=== PATIENT | female | born 2000 | race Caucasian/White ===

== ENCOUNTER 2019-12-22 05:37 | Inpatient (IN) | payer BC, OTHER ==
[2019-12-22 06:24] LABS: APPEARANCE,URINE CLOUDY; BILIRUBIN,URINE NEGATIVE (NEGATIVE); COLOR,URINE YELLOW; GLUCOSE, URINE NEGATIVE (NEGATIVE); KETONES,URINE 20 mg/dL (NEGATIVE); LEUKOCYTE ESTERASE,URINE SMALL (NEGATIVE); NITRITE,URINE NEGATIVE (NEGATIVE); PROTEIN,URINE 30 mg/dL (NEGATIVE); URINE SPECIFIC GRAVITY 1.021; UROBILINOGEN,URINE NEGATIVE mg/dL (<2.0)
[2019-12-22 06:46] LABS: URINE AMPHETAMINES SCREEN NEGATIVE; URINE BARBITURATES SCREEN NEGATIVE; URINE BENZODIAZEPINES SCREEN NEGATIVE; URINE COCAINE SCREEN NEGATIVE; URINE MARIJUANA (THC) SCREEN NEGATIVE; URINE METHADONE SCREEN NEGATIVE; URINE PHENCYCLIDINE SCREEN NEGATIVE
[2019-12-22] MEDS ORDERED: RINGERS SOLUTION,LACTATED 1,000 ML IV ONE (08:32)
[2019-12-22] MEDS: RINGERS SOLUTION,LACTATED 1,000 ML IV PRN ×2 (09:28→17:40)
[2019-12-22 10:13] LABS: ABSOLUTE EOSINOPHILS # (AUTO) 0.1 10^3/uL (0.0-0.6); ABSOLUTE LYMPHOCYTES (AUTO) 1.4 10^3/uL (0.5-4.7); ABSOLUTE MONOCYTES (AUTO) 0.7 10^3/uL (0.1-1.4); BASOPHILS % (AUTO) 0.2 % (0-2); EOSINOPHILS % (AUTO) 0.8 % (0-6); HEMATOCRIT 36.3 % (36.0-47.0); LYMPHOCYTES % (AUTO) 14.1 % (13-45); MEAN CORPUSCULAR HEMOGLOBIN 25.8 pg (27.0-33.4); MEAN CORPUSCULAR HGB CONC 33.2 g/dL (32.0-36.0); MEAN CORPUSCULAR VOLUME 78 fl (80-97); MONOCYTES % (AUTO) 6.8 % (3-13); PLATELET COUNT 140 10^3/uL (150-450); RED BLOOD COUNT 4.67 10^6/uL (3.72-5.28); RED CELL DISTRIBUTION WIDTH 15.6 % (11.5-14.0); SEGMENTED NEUTROPHILS % (AUTO) 78.1 % (42-78); TOTAL CELLS COUNTED % (AUTO) 100 %; WHITE BLOOD COUNT 10.2 10^3/uL (4.0-10.5)
[2019-12-22] MEDS ORDERED: OXYTOCIN/0.9 % SODIUM CHLORIDE 30 UNIT/500 ML RTUINJ IV PRN ×3 (10:52→19:01)
[2019-12-22] MEDS ORDERED: LIDOCAINE 1% INJ-PF (10 MG/ML) 30 ML SDV ONE (11:22)
[2019-12-22] MEDS ORDERED: OXYTOCIN/0.9 % SODIUM CHLORIDE 30 UNIT/500 ML RTUINJ ONE ×2 (11:22→19:24)
[2019-12-22] MEDS ORDERED: MISOPROSTOL 0.2 MG TABLET ONE (11:22)
[2019-12-22] MEDS ORDERED: OXYTOCIN 10 UNIT/ML VIAL ONE ×2 (11:22→17:45)
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
[2019-12-22] MEDS ORDERED: EPHEDRINE SULFATE INJ 50 MG/1 ML AMPULE ONE ×2 (14:04→17:46)
[2019-12-22] MEDS ORDERED: FENTANYL/BUPIVACAINE/NS/PF 300 MCG/150 ML RTUINJ EPI ONE (14:04)
[2019-12-22] MEDS ORDERED: ROPIVACAINE HCL 0.2% INJ/PF (2 MG/ML) 20 ML SDV ONE (14:04)
[2019-12-22] MEDS ORDERED: CITRIC ACID/SODIUM CITRATE ORAL SOLN 15 ML UDCUP ONE (17:16)
[2019-12-22] MEDS ORDERED: CEFAZOLIN 2 GM/D5W RTU 2 GM/50 ML RTUPB IV ONE (17:17)
[2019-12-22] MEDS ORDERED: PHENYLEPHRINE HCL INJ/PF 10 MG/1 ML SDV ONE (17:45)
[2019-12-22] MEDS ORDERED: KETOROLAC TROMETHAMINE INJ/PF 30 MG/1 ML SDV ONE (17:45)
[2019-12-22] MEDS ORDERED: LIDOCAINE 2% INJ-PF (20 MG/ML) 10 ML AMPUL ONE (17:45)
[2019-12-22] MEDS ORDERED: FENTANYL CITRATE INJ/PF 100 MCG/2 ML AMPUL ONE (17:45)
[2019-12-22] MEDS ORDERED: MIDAZOLAM 2 MG/2 ML INJ ONE (17:46)
[2019-12-22] MEDS ORDERED: METHYLERGONOVINE MALEATE INJ/PF 0.2 MG/1 ML AMPULE ONE (17:46)
[2019-12-22] MEDS ORDERED: ACETAMINOPHEN 1,000 MG/100 ML RTUPB IV ONE (17:46)
[2019-12-22] MEDS ORDERED: ONDANSETRON HCL INJ/PF 4 MG/2 ML SDV ONE (17:46)
[2019-12-22] MEDS ORDERED: PROMETHAZINE HCL INJ 25 MG/1 ML VIAL IV PRN ×3 (18:03→19:01)
[2019-12-22] MEDS ORDERED: MEPERIDINE HCL/PF INJ 25 MG/1 ML DISP.SYRIN IV PRN (18:03)
[2019-12-22] MEDS ORDERED: OXYCODONE-ACETAMINOPHEN 5-325 MG TABLET PO PRN ×3 (18:03→19:01)
[2019-12-22] MEDS ORDERED: ONDANSETRON HCL INJ/PF 4 MG/2 ML SDV IV PRN (18:03)
[2019-12-22] MEDS ORDERED: FENTANYL CITRATE INJ/PF 100 MCG/2 ML AMPUL IV PRN ×3 (18:03)
[2019-12-22] MEDS ORDERED: DIPHENHYDRAMINE HCL 50 MG/ML VIAL IV PRN (18:03)
[2019-12-22] MEDS ORDERED: ACETAMINOPHEN 325 MG TABLET PO PRN (19:01)
[2019-12-22] MEDS ORDERED: DIPH/PERTUSS(ACELL)/TETANUS VAC/PF 0.5 ML SYR (>=10YO) IM PRN (19:01)
[2019-12-22] MEDS ORDERED: SIMETHICONE 80 MG TAB.CHEW PO PRN (19:01)
[2019-12-22] MEDS ORDERED: MEASLES,MUMPS&RUBELLA VACC/PF 0.5 ML VIAL SUBCUT PRN (19:01)
[2019-12-22] MEDS ORDERED: RINGERS SOLUTION,LACTATED 1,000 ML IV PRN (19:01)
[2019-12-22] MEDS ORDERED: ACETAMINOPHEN 1,000 MG/100 ML RTUPB IV PRN (19:01)
[2019-12-22] MEDS ORDERED: MORPHINE SULFATE 10 MG/ML INJ IV PRN (19:01)
--- NOTE | 2019-12-22 19:08 | Operative Report ---
Operative Report DATE OF SURGERY: 12/22/19 PREOPERATIVE DIAGNOSIS: IUP at 39 weeks and 5 days, equivocal NST, nonreassuring heart tones, POSTOPERATIVE DIAGNOSIS: Same, chorioamnionitis, OPERATION: Primary SURGEON: SCARLET MERLOS ANESTHESIA: Epidural TISSUE REMOVED OR ALTERED: Placenta COMPLICATIONS: None ESTIMATED BLOOD LOSS: 650 cc INTRAOPERATIVE FINDINGS: Male in cephalic presentation Apgars of one and eight, thick meconium, purulent meconium PROCEDURE: PROCEDURE IN DETAIL: The patient was taken to the operating room, prepared and draped in a normal sterile fashion in a supine position with a leftward tilt. A transverse skin incision was made with a scalpel and carried through to the underlying layer of fascia with the same scalpel. The fascia was excised in the midline and extended laterally with Rayo. The fascia was then dissected from the rectus muscle sharply with Rayo and the rectus muscle was divided and the peritoneal cavity was entered sharply with the same Metzenbaum. With good visualization of the bladder and the uterus the bladder blade was inserted. The hysterotomy was nicked with a scalpel and extended laterally with surgeon finger fraction. The was then delivered atraumatically. The nose and mouth were suctioned with a suction bulb, the cord was clamped and cut and handed off to awaiting pediatricians. Cord blood was collected. The placenta was removed manually. The uterus was exteriorized and cleared of clots and debris. The hysterotomy was closed with 0 Monocryl in a running, locked fashion. A second layer of the same suture was used to imbricate to ensure hemostasis. The uterus was returned to the abdomen and peritoneal cavity was cleared of clots and debris. The rectus muscle and peritoneum were repaired with mattress stitch of 2-0 Chromic. The fascia was closed with 0-Vicryl. The subcutaneous layer was closed with plain catgut and the skin was closed with 4-0 Vicryl. The patient tolerated the procedure well. Sponge, lap, and needle counts correct x2 and the patient was taken to recovery in stable condition.
[2019-12-22] MEDS ORDERED: MORPHINE SULFATE 10 MG/ML INJ ONE (19:12)
[2019-12-22] MEDS: MORPHINE SULFATE 10 MG/ML INJ IV PRN ×2 (19:14→19:50)
--- NOTE | 2019-12-22 19:36 | Warning Signs in Babies ---
VOD Warning Signs Datetime Report Generated by N: 12/22/2019 19:36 VOD#608 -Warning Signs in Babies: Viewed with Parent(s)/Family (12/22/2019 06:36:Payal Chua RN)
--- NOTE | 2019-12-22 21:14 | Birth Certificate Data ---
Cert Data Datetime Report Generated by CPN: 12/22/2019 21:14 CERTIFICATE DATA 47a. Care: Yes (12/22/2019 06:36:Mat Villar RN) 47b. Date of First Visit: 05/08/2019 00:00 (12/22/2019 06:36:Mat Villar RN) 47c. Date of Last Visit: 12/15/2019 00:00 (12/22/2019 06:36:Payal Chua RN) 48a. Number of Prev Live Births: 0 (12/22/2019 06:36:Mat Villar RN) 48b. Now Livin (12/22/2019 06:36:Mat Villar RN) 48c. Live Births Now : 0 (12/22/2019 06:36: system process) 48e. Losses: 0 (12/22/2019 06:36:Mat Villar RN) RISK FACTORS IN THIS 49a. Diabetes: No (12/22/2019 06:36:Payal Chua RN) 49b. Hypertension: No (12/22/2019 06:36:Payal Chua RN) 49c. Previous Births: 0 (12/22/2019 06:36:Mat Villar RN) 49d. Stillborns: No (12/22/2019 06:36:Payal Chua RN) 49d. IUGR: No (12/22/2019 06:36:Payal Chua RN) 49e. Infertility Treatment: No (12/22/2019 06:36:Payal Chua RN) 49f. Previous Cesareans: 0 (12/22/2019 06:36:Mat Villar RN) Mother's Height 50b. Height Inches: 65 (12/22/2019 05:51:QS system process) Mother's Weight 51a. Pre- Weight (lbs): 268 (12/22/2019 06:36:Mat Villar RN) 51b. Weight at Delivery (lbs): 273 (12/22/2019 21:01:QS system process) 52. Dt Last Normal Menses Began: 02/20/2019 00:00 (12/22/2019 06:36:Mat Villar RN) Infections Present/Treated 53a. Gonorrhea: No (12/22/2019 06:36:Payal Chua RN) Results this Hospital Visit : Negative (12/22/2019 06:36:Mat Villar RN) 53b. Syphilis: No (12/22/2019 06:36:Payal Chua RN) 53c. Chlamydia: No (12/22/2019 06:36:Payal Chua RN) Results this Hospital Visit: Negative (12/22/2019 06:36:Mat Villar RN) 53d. Hepatitis B: No (12/22/2019 06:36:Payal Chua RN) Results this Hospital Visit: Negative (12/22/2019 06:36:Mat Villar RN) 53e. Hepatitis C: Negative (12/22/2019 06:36:Mat Villar RN) 53h. Mother Tested for HBsAG: Yes (12/22/2019 06:36:Mat Villar RN) 53i. Date Tested: 05/08/2019 00:00 (12/22/2019 06:36:Mat Villar RN) 53j. Test Result: Negative (12/22/2019 06:36:Mat Villar RN) Obstetric Procedures 54a, b, c. Obstetric Procedures: Ultrasound (12/22/2019 06:36:Mat Villar RN) Cigarette Smoking Cigarette Smoking: Former Smoker. [id number] (12/22/2019 06:36:Payal Chua RN) 55a. 3 Months Before Preg - Ci (12/22/2019 06:36:Payal Chua RN) 55a. Packs: 0 (12/22/2019 06:36:Payal Chua RN) 55b. 1st Trimester of Preg- Ci (12/22/2019 06:36:Payal Chua RN) 55b. Packs: 0 (12/22/2019 06:36:Payal Chua RN) 55c. 2nd Trimester of Preg- Ci (12/22/2019 06:36:Payal Chua RN) 55c. Packs: 0 (12/22/2019 06:36:Payal Chua RN) 55d. 3rd Trimester of Preg- Ci (12/22/2019 06:36:Payal Chua RN) 55d. Packs: 0 (12/22/2019 06:36:Payal Chua RN) Onset of Labor 56a. PROM >12 Hrs: 6.10 (12/22/2019 06:36:QS system process) 56b. Precipitous Labor <3 Hrs: 6 (12/22/2019 06:36:QS system process) 56c. Prolonged Labor > 20 Hrs: 6 (12/22/2019 06:36:QS system process) 57a. Induction of Labor: Induction (12/22/2019 06:36:Payal Chua RN) 57c. Non-Vertex Presentation A: Vertex (12/22/2019 06:36:DAYNE Ortega) 57d. Steroids - Lung Mat: None (12/22/2019 06:36:Payal Chua RN) 57d. Steroids - Lung Mat: Not Applicable (12/22/2019 06:36:Payal Chua RN) 57e. Antibiotics During Labor: 12/22/2019 18:15 (12/22/2019 06:36:Payal Chua RN) 57f. Mat Chorio or Temp >100.4: 99.9 (12/22/2019 06:36:Kelly Smith RN) 57g. Moderate/Heavy Meconium: Bloody (12/22/2019 06:36:Payal Chua RN) 57h. Intolerance of Labor: Nonreassuring Status (12/22/2019 06:36:Payal Chua RN) : N/A (12/22/2019 06:36:DAYNE Ortega) 57i. Epidural/Spinal Anesthesia: Epidural (12/22/2019 06:36:Payal Chua RN) Method of Delivery 58a. Forceps - Unsuccessful A: N/A (12/22/2019 06:36:DAYNE Ortega) 58b. Vacuum - Unsuccessful A: N/A (12/22/2019 06:36:DAYNE Ortega) 58c. Presentation at 58c. Presentation at - A : Vertex (12/22/2019 06:36:[facility]) 58c. Presentation at - A : N/A (12/22/2019 06:36:[facility]) 58c. Presentation at - A : Cephalic (12/22/2019 14:41:Payal Chua RN) Final Route and Method of Del 58d. Baby A Route/Delivery: (12/22/2019 06:36:[facility]) 58e. Trial of Labor Attempted: No (12/22/2019 06:36:Payal Chua RN) 58e. Trial of Labor Attempted A: N/A (12/22/2019 06:36:Payal Chua RN) 58e. Trial of Labor Attempted B: N/A (12/22/2019 06:36:Payal Chua RN) Maternal Morbidity 59b. 3rd or 4th Degree Lacs: None (12/22/2019 06:36:Yolanda Camp, C) 59b. 3rd or 4th Degree Lacs: N/A (12/22/2019 06:36:Payal Chua RN) Birthweight Baby A: 3480 (12/22/2019 06:36:Tresa Zee RN) 60a. Pounds : 7 (12/22/2019 06:36:QS system process) 60b. Ounces: 11 (12/22/2019 06:36:QS system process) 61. GA at Delivery Baby A: 40.1 (12/22/2019 06:36:Yolanda Meliton, [facility]) : Full Term- 39- 40.6 Weeks (12/22/2019 06:36:QS system process) 62a. 5 Minute Baby A: 8 (12/22/2019 06:36:QS system process)
--- NOTE | 2019-12-22 21:14 | Delivery Summary ---
Del Sum A-C Datetime Report Generated by CPN: 12/22/2019 21:14 DELIVERY PERSONNEL DELIVERY PERSONNEL: [id number] Delivery Doctor:: Jocelin Parr MD HUMAN RESOURCES ADMIN:: Chanelle Charlton CRNA Roster Clerk:: Payal Chua RN Neonatal Nurse Practitioner:: GRETCHEN [place] Nursery Nurse:: Tresa Zee RN Nuclear Powerplant Mechanic/NEWS GATHERING TECHNICIAN: Jade Logan CST Nuclear Powerplant Mechanic/NEWS GATHERING TECHNICIAN: Mikaela Pringle, ASSOCIATE SALES MATERNAL INFORMATION Delivery Anesthesia: Epidural Medications After Delivery: Pitocin 30 Units in 500ml NS/D5W Meds After Delivery Comment: Pitocin 30units/500mL NS per HUMAN RESOURCES ADMIN Delivery QBL: 1060 Delivery QBL Comment: copious amount of meconium on laps Maternal Complications: None LABOR SUMMARY EDC: 12/21/2019 00:00 No. Babies in Womb: 1 Attempted: No Labor Anesthesia: Epidural LABOR INFORMATION Reason for Induction: Other Reason for Induction- Other: prolonged decel at term Onset of Labor: 12/22/2019 11:40 Oxytocin: Induction Group B Beta Strep: Negative Antibiotics # of Doses: 1 Antibiotics Time of Last Dose: 12/22/2019 18:15 Name of Antibiotic Given: Ancef 2gm Steroids Given: None Reason Steroids Not Administered: Not Applicable MEMBRANES Membranes Rupture Method: Artificial Rupture of Membranes: 12/22/2019 12:25 Length of Rupture (hr): 6.10 Amniotic Fluid Color: Bloody Amniotic Fluid Amount: Small Amniotic Fluid Odor: Normal STAGES OF LABOR Stage 3 hr: 0 Stage 3 min: 1 Total Time in Labor hr: 6 Total Time in Labor min: 52 VAGINAL DELIVERY Episiotomy: None Laceration #1: None Laceration Extension #1: N/A Laceration Repair: Not Applicable Sponge Count Correct: N/A Sharps Count Correct: N/A CSECTION DELIVERY Primary Indication: Nonreassuring Status Secondary Indication: N/A CSection Urgency: Non-Scheduled CSection Incidence: Primary Labor: Labor Elective: Nonelective CSection Incision: Lower Uterine Transverse BABY A INFORMATION Delivery Date/Time: 12/22/2019 18:31 Method of Delivery: Nurse Controlled Delivery: No Born in Route : No : N/A Forceps: N/A Vacuum Extraction: N/A Shoulder Dystocia : No PRESENTATION/POSITION BABY A Presentation: Cephalic Cephalic Presentation: Vertex Breech Presentation: N/A PLACENTA INFORMATION BABY A Placenta Delivery Time : 12/22/2019 18:32 Placenta Method of Delivery: Manual Removal Placenta Status: Delivered SCORES BABY A Heart Rate 1 min: Slow, Below 100 bpm Resp Effort 1 min: Absent Reflex Irritability 1 min: No Response Muscle Tone 1 min: Flaccid Color 1 min: Blue/Pale Resuscitation Effort 1 min: Tactile Stimulation; PPV/NCPAP SCORE 1 MIN: 1 Heart Rate 5 min: >100 bpm Resp Effort 5 min: Good Cry Reflex Irritability 5 min: Cough or Sneeze or Pulls Away Muscle Tone 5 min: Active Motion Color 5 min: Blue/Pale Resuscitation Effort 5 min: Tactile Stimulation; Oxygen SCORE 5 MIN: 8 INFORMATION BABY A Gestational Age at Delivery: 40.1 Gestational Status: Full Term- 39- 40.6 Weeks Infant Outcome : Liveborn Infant Condition : Stable Infant Sex: Male IDENTIFICATION BABY A Verification Date/Time: 12/22/2019 19:36 ID Band Number: [id number] Mother's Name Verified: Yes RN Verifying Infant: E. Zenonlek RN/ H. Fright RN WEIGHT/LENGTH BABY A Birthweight (gm): 3480 Weight (lb): 7 Infant Weight (oz): 11 Length (in): 20.50 Length (cm): 52.07 CORD INFORMATION BABY A No. Cord Vessels: 3 Nuchal Cord : Around Neck x1, Loose Cord Blood Taken: Yes-For Storage (Mom's Blood type +) Infant Suction: Mouth; Nose; Pharynx ASSESSMENT BABY A Infant Complications: Multiple Late Decels; Multiple Variable Decels; Meconium Physical Findings at Delivery: Within Normal Limits; Molding of the Head; Puncture Wound from Scalp Electrode Skin to Skin: Yes Regional Sales Consultant/ALS Called : Yes Infant Care By: Duglas Zee RN/B Miguel SAND SHOVELER Transferred To: [facility] BABY B INFORMATION : N/A SIGNATURES : I was personally available for consultation and serving as supervising physician for the MLP.
[2019-12-22] MEDS ORDERED: CEFAZOLIN INJ 1 GM VIAL IV SCH (22:00)
[2019-12-23] MEDS: KETOROLAC TROMETHAMINE INJ/PF 30 MG/1 ML SDV IV SCH ×3 (01:24→17:42)
[2019-12-23] MEDS ORDERED: CEFAZOLIN 1 GM/D5W RTU 1 GM/50 ML RTUPB IV SCH (02:00)
[2019-12-23] MEDS: OXYCODONE-ACETAMINOPHEN 5-325 MG TABLET PO PRN ×2 (07:00→16:05)
[2019-12-23 07:08] LABS: HEMATOCRIT 32.9 % (36.0-47.0); MEAN CORPUSCULAR HEMOGLOBIN 26.1 pg (27.0-33.4); MEAN CORPUSCULAR HGB CONC 33.5 g/dL (32.0-36.0); MEAN CORPUSCULAR VOLUME 78 fl (80-97); PLATELET COUNT 119 10^3/uL (150-450); RED BLOOD COUNT 4.23 10^6/uL (3.72-5.28); RED CELL DISTRIBUTION WIDTH 16.1 % (11.5-14.0); WHITE BLOOD COUNT 9.7 10^3/uL (4.0-10.5)
--- NOTE | 2019-12-23 08:53 | PDOC PROGRESS REPORT ---
Subjective-OB Progress Note for:: 12/23/19 Subjective: Doing wel, brewer removed, not OOB yet, ate BKF, tolerating well, feels sore, no pain, plans to breastfeed Physical Exam (OB) Vital Signs: Temp Pulse Resp BP Pulse Ox 98.8 F 91 16 143/83 H 100 12/23/19 07:34 12/23/19 07:34 12/23/19 07:34 12/23/19 07:34 12/23/19 07:34 Intake & Output 12/22/19 12/23/19 12/24/19 06:59 06:59 06:59 Intake Total 1596 Output Total 750 Balance 846 Weight 123.7 kg - PIH/Pre-Eclampsia DTR's: 2 + Clonus: Negative Headache: Absent Epigastric Pain: No Visual Changes: No - Dressing Removed: No - Opsite Closure Type: Sutures - Maternal Morbidity 59. Maternal Morbidity (serious complications experinced by the mother associated with labor and delivery: None of the above - Lochia Lochia Amount: Scant < 10 ml Lochia Color: Rubra/Red - Abdomen Description: Soft, Round Hernia Present: No Fundal Description: Firm, Midline Fundal Height: u/u - u/2 Objective-Diagnostic Laboratory: 12/23/19 06:47 12/22/19 12/22/19 12/23/19 09:40 09:40 06:47 WBC 10.2 9.7 RBC 4.67 4.23 Hgb 12.0 11.0 L Hct 36.3 32.9 L MCV 78 L 78 L MCH 25.8 L 26.1 L MCHC 33.2 33.5 RDW 15.6 H 16.1 H Plt Count 140 L 119 L Seg Neutrophils % 78.1 H Blood Type AB POSITIVE Antibody Screen NEGATIVE Assessment and Plan(PN) - Assessment and Plan (1) Status post repeat low transverse section Is this a current diagnosis for this admission?: Yes - Time Spent with Patient Time with patient: Less than 15 minutes Medications reviewed and adjusted accordingly: Yes - Disposition Anticipated Discharge Disposition: Home, Self Care Anticipated Discharge Timeframe: within 24 hours
[2019-12-23] MEDS: PRENATAL VITAMIN W DHA CAPSULE PO SCH (09:54)
[2019-12-23] MEDS: DOCUSATE SODIUM 100 MG CAPSULE PO SCH ×2 (09:54→17:36)
[2019-12-23] MEDS: IBUPROFEN 800 MG TABLET PO SCH ×2 (17:36→23:19)
[2019-12-24] MEDS: KETOROLAC TROMETHAMINE INJ/PF 30 MG/1 ML SDV IV SCH ×3 (01:17→17:18)
[2019-12-24] MEDS: IBUPROFEN 800 MG TABLET PO SCH ×3 (05:17→17:11)
[2019-12-24] MEDS ORDERED: INFLUENZA QUAD (6MOS+) 2020-21 VAC 0.5 ML SYR IM ONE (08:00)
[2019-12-24] MEDS: PRENATAL VITAMIN W DHA CAPSULE PO SCH (09:55)
[2019-12-24] MEDS: DOCUSATE SODIUM 100 MG CAPSULE PO SCH ×2 (09:55→17:11)
--- NOTE | 2019-12-24 14:03 | PDOC DISCHARGE SUMMARY ---
Impression - Admit/DC Date/PCP Admission Date/Primary Care Provider: 12/22/19 08:32 WILLY HUGHES DO Discharge Date: 12/24/19 - Discharge Diagnosis (1) Status post repeat low transverse section Is this a current diagnosis for this admission?: Yes - Assessment Summary: 19yo s/p ppd2 -Primary stable and ready for discharge, understands warning s/s and reasons to rtc/[facility]. Pt asked questions and verbalized understanding. - Additional Information Discharge Diet: As Tolerated, Regular Discharge Activity: Activity As Tolerated, Balance Activity w/Rest, No Driving, No Lifting Over 10 Pounds, No Lifting/Push/Pulling, Pelvic Rest, No tub bath, Walk Frequently Referrals: WILLY HUGHES DO [Primary Care Provider] - Prescriptions: Oxycodone HCl/Acetaminophen [Percocet 5-325 mg Tablet] 1 tab PO Q4HP PRN #20 tablet PRN Reason: For Pain Scale 3-5 Ibuprofen [Motrin 800 mg Tablet] 800 mg PO Q8HP PRN #30 tablet PRN Reason: For Pain Scale 1-3 Docusate Sodium [Colace 100 mg Capsule] 100 mg PO BID #30 capsule Home Medications: Albuterol Sulfate [Proair HFA Inhalation Aerosol 8.5 gm MDI] 200 puff IH Q4H 12/22/19 Vit,Calc76/Iron/Folic [Prenatabs Rx Tablet] 1 tab PO DAILY 12/22/19 Docusate Sodium [Colace 100 mg Capsule] 100 mg PO BID #30 capsule 12/24/19 Ibuprofen [Motrin 800 mg Tablet] 800 mg PO Q8HP PRN #30 tablet 12/24/19 Oxycodone HCl/Acetaminophen [Percocet 5-325 mg Tablet] 1 tab PO Q4HP PRN #20 tablet 12/24/19 Hospital Course 59. Maternal Morbidity (serious complications experinced by the mother associated with labor and delivery: None of the above Results Laboratory Results: WBC 9.7 10^3/uL (4.0-10.5) 12/23/19 06:47 RBC 4.23 10^6/uL (3.72-5.28) 12/23/19 06:47 Hgb 11.0 g/dL (12.0-15.5) L 12/23/19 06:47 Hct 32.9 % (36.0-47.0) L 12/23/19 06:47 MCV 78 fl (80-97) L 12/23/19 06:47 MCH 26.1 pg (27.0-33.4) L 12/23/19 06:47 MCHC 33.5 g/dL (32.0-36.0) 12/23/19 06:47 RDW 16.1 % (11.5-14.0) H 12/23/19 06:47 Plt Count 119 10^3/uL (150-450) L 12/23/19 06:47 Lymph % (Auto) 14.1 % (13-45) 12/22/19 09:40 [place] % (Auto) 6.8 % (3-13) 12/22/19 09:40 Eos % (Auto) 0.8 % (0-6) 12/22/19 09:40 Baso % (Auto) 0.2 % (0-2) 12/22/19 09:40 Absolute Neuts (auto) 8.0 10^3/uL (1.7-8.2) 12/22/19 09:40 Absolute Lymphs (auto) 1.4 10^3/uL (0.5-4.7) 12/22/19 09:40 Absolute Monos (auto) 0.7 10^3/uL (0.1-1.4) 12/22/19 09:40 Absolute Eos (auto) 0.1 10^3/uL (0.0-0.6) 12/22/19 09:40 Absolute Basos (auto) 0.0 10^3/uL (0.0-0.2) 12/22/19 09:40 Seg Neutrophils % 78.1 % (42-78) H 12/22/19 09:40 Urine Color YELLOW 12/22/19 05:48 Urine Appearance CLOUDY 12/22/19 05:48 Urine pH 6.0 (5.0-9.0) 12/22/19 05:48 Ur Specific [place] 1.021 12/22/19 05:48 Urine Protein 30 mg/dL (NEGATIVE) H 12/22/19 05:48 Urine Glucose (UA) NEGATIVE mg/dL (NEGATIVE) 12/22/19 05:48 Urine Ketones 20 mg/dL (NEGATIVE) H 12/22/19 05:48 Urine Blood SMALL (NEGATIVE) H 12/22/19 05:48 Urine Nitrite NEGATIVE (NEGATIVE) 12/22/19 05:48 Urine Bilirubin NEGATIVE (NEGATIVE) 12/22/19 05:48 Urine Urobilinogen NEGATIVE mg/dL (<2.0) 12/22/19 05:48 Ur Leukocyte Esterase SMALL (NEGATIVE) H 12/22/19 05:48 Urine Ascorbic Acid NEGATIVE (NEGATIVE) 12/22/19 05:48 Urine Opiates Screen NEGATIVE 12/22/19 05:48 Urine Methadone Screen NEGATIVE 12/22/19 05:48 Ur Barbiturates Screen NEGATIVE 12/22/19 05:48 Ur Phencyclidine Scrn NEGATIVE 12/22/19 05:48 Ur Amphetamines Screen NEGATIVE 12/22/19 05:48 U Benzodiazepines Scrn NEGATIVE 12/22/19 05:48 Urine Cocaine Screen NEGATIVE 12/22/19 05:48 U Marijuana (THC) Screen NEGATIVE 12/22/19 05:48 RPR NONREACTIVE (NONREACTIVE) 12/22/19 09:40 Blood Type AB POSITIVE 12/22/19 09:40 Antibody Screen NEGATIVE 12/22/19 09:40
[2019-12-24 16:07] VITALS: BP 113/78
[2019-12-25] MEDS ORDERED: INFLUENZA QUAD (6MOS+) 2020-21 VAC 0.5 ML SYR IM ONE (08:00)
== END 2019-12-24 19:00 | disposition home or self-care (01) | DRG 786 ==
LOC: LC 05:37 → LR 08:32 → 2N 20:57
PROVIDERS: ADMIT Obstetrics & Gynecology; ATTEND Obstetrics & Gynecology
PROC: 10D00Z1 Extraction of Products of Conception, Low, Open Approach (ICD-10-PCS; principal; 2019-12-22)
PROC: 3E02340 Introduction of Influenza Vaccine into Muscle, Percutaneous Approach (ICD-10-PCS; 2019-12-24)
DX: O76 Abnormality in fetal heart rate and rhythm complicating labor and delivery (principal); O41.1230 Chorioamnionitis, third trimester, not applicable or unspecified; O69.81X0 Labor and delivery complicated by cord around neck, without compression, not applicable or unspecified; O99.52 Diseases of the respiratory system complicating childbirth; Z3A.40 40 weeks gestation of pregnancy; Z37.0 Single live birth; Z88.0 Allergy status to penicillin; Z87.891 Personal history of nicotine dependence; Z91.013 Allergy to seafood; Z62.810 Personal history of physical and sexual abuse in childhood; Z23 Encounter for immunization
CPT/HCPCS: 1967; 1968; 36415; 59025; 80307; 81005; 85025; 85027; 86592; 86850; 86900; 86901; 88307; 90471; 90686; 90715; 94760; 94799; G0008; J0131; J0690; J1885; J2210; J2250; J2270; J2370; J2405; J2590; J2795; J3010; J3490